=== PATIENT | female | born 1985 | race Two or more races ===

== ENCOUNTER 2018-06-12 22:07 | Outpatient (CLI) | payer BC ==
[2018-06-12 23:46] LABS: ADD UMIC NO; UR ASCORBIC ACID NEGATIVE (NEGATIVE); UR BILIRUBIN (Dip) NEGATIVE (NEGATIVE); UR BLOOD (Dip) NEGATIVE (NEGATIVE); UR CLARITY CLEAR (CLEAR); UR COLOR YELLOW (YELLOW); UR GLUCOSE (Dip) NEGATIVE (NEGATIVE); UR KETONES (Dip) NEGATIVE (NEGATIVE); UR LEUKOCYTE ESTERASE (Dip) NEGATIVE Leu/ul (NEGATIVE); UR NITRITE (Dip) NEGATIVE (NEGATIVE); UR SPECIFIC GRAVITY (Dip) 1.016 (1.003-1.030); UR TOTAL PROTEIN (Dip) NEGATIVE (NEGATIVE); UR UROBILINOGEN (Dip) 2+ mg/dL (NEGATIVE)
[2018-06-12] MEDS: TERBUTALINE 1 MG/ML INJ SC (23:46)
[2018-06-13] MEDS: LACTATED RINGER'S 1,000 ML IV (00:02)
== END 2018-06-13 00:42 | disposition home or self-care (01) ==
LOC: OBT 22:07 → L-D 22:09
DX: O47.03 False labor before 37 completed weeks of gestation, third trimester (principal); Z3A.36 36 weeks gestation of pregnancy
CPT/HCPCS: 76815; 76818; 81003; 96360; 96361; 96372

== ENCOUNTER 2018-06-13 21:30 | Inpatient (IN) | payer BC ==
[2018-06-14] MEDS: LACTATED RINGER'S 1,000 ML IV* ×4 (01:00→03:11)
[2018-06-14] MEDS ORDERED: MISOPROSTOL 200 MCG TAB PR ×2 (01:30→08:30)
[2018-06-14] MEDS ORDERED: CARBOPROST 250 MCG INJ IM ×2 (01:30→08:30)
[2018-06-14] MEDS ORDERED: OXYTOCIN 30 UNITS/LR 500 ML IV ×2 (01:30→08:30)
[2018-06-14] MEDS ORDERED: METHYLERGONOVINE 0.2 MG INJ IM ×2 (01:30→08:30)
[2018-06-14 01:40] LABS: ADD MAN DIFF? NO
[2018-06-14] MEDS: AMPICILLIN 2 GM/NS (PMX) 100 ML IV (01:44)
[2018-06-14 01:46] LABS: BASOPHILS % 0.4 % (0.0-2.0); EOSINOPHILS % 0.7 % (0.0-7.0); HEMATOCRIT 37.5 % (37.0-47.0); HEMOGLOBIN 11.9 g/dl (12.0-16.0); LYMPHOCYTES # 1.8 10^3/ul (0.8-2.9); MEAN CORPUSCULAR HEMOGLOBIN 28.7 pg (29.0-33.0); MEAN CORPUSCULAR HGB CONC 31.7 g/dl (32.0-37.0); MEAN CORPUSCULAR VOLUME 90.4 fl (82.0-101.0); MEAN PLATELET VOLUME 9.8 fl (7.4-10.4); MONOCYTE # 0.5 10^3/ul (0.3-0.9); MONOCYTES % 8.1 % (0.0-11.0); NEUTROPHIL # 3.3 10^3/ul (1.6-7.5); NEUTROPHILS % 58.4 % (39.0-77.0); PLATELET COUNT 257 10^3/UL (140-415); RED BLOOD COUNT 4.15 10^6/ul (4.20-5.40); RED CELL DISTRIBUTION WIDTH 15.6 % (11.5-14.5)
[2018-06-14 01:46] LABS: WHITE BLOOD COUNT 5.7 10^3/ul (4.8-10.8)
[2018-06-14 01:50] LABS: ADD UMIC NO; UR ASCORBIC ACID NEGATIVE (NEGATIVE); UR BILIRUBIN (Dip) NEGATIVE (NEGATIVE); UR BLOOD (Dip) NEGATIVE (NEGATIVE); UR CLARITY CLEAR (CLEAR); UR COLOR YELLOW (YELLOW); UR GLUCOSE (Dip) NEGATIVE (NEGATIVE); UR KETONES (Dip) 1+ mg/dL (NEGATIVE); UR LEUKOCYTE ESTERASE (Dip) NEGATIVE Leu/ul (NEGATIVE); UR NITRITE (Dip) NEGATIVE (NEGATIVE); UR SPECIFIC GRAVITY (Dip) 1.013 (1.003-1.030); UR TOTAL PROTEIN (Dip) NEGATIVE (NEGATIVE); UR UROBILINOGEN (Dip) NEGATIVE (NEGATIVE)
[2018-06-14 02:08] LABS: INR 0.85; PROTIME 11.7 Sec (11.9-14.9); PT RATIO 0.9
[2018-06-14 02:09] LABS: PARTIAL THROMBOPLASTIN TIME 24.1 Sec (25.0-35.0)
[2018-06-14 03:25] LABS: HEPATITIS B SURFACE ANTIGEN NEGATIVE (NEGATIVE)
[2018-06-14] MEDS: CITRIC ACID/SODIUM CITRATE 15 ML CUP PO (03:28)
[2018-06-14] MEDS: ONDANSETRON 4 MG INJ IV (03:29)
[2018-06-14 03:35] LABS: HIV 1&2 ANTIBODY NEGATIVE (NEGATIVE)
[2018-06-14 03:41] LABS: AMPHETAMINE/METHAMPHETAMINE Negative (NEGATIVE); BARBITURATES Negative (NEGATIVE); BENZODIAZEPINES Negative (NEGATIVE); CANNABINOIDS Negative (NEGATIVE); COCAINE Negative (NEGATIVE); OPIATES Negative (NEGATIVE)
[2018-06-14] MEDS ORDERED: FENTAnyl 50 MCG/ML VIAL (04:05)
[2018-06-14] MEDS ORDERED: morphine SULFATE/PF (10 MG/10 ML) INJ (04:05)
[2018-06-14] MEDS ORDERED: METOCLOPRAMIDE 10 MG INJ (04:05)
[2018-06-14] MEDS ORDERED: PHENYLephrine (100 MCG/ML) 5ML SYG (04:05)
[2018-06-14] MEDS ORDERED: OXYTOCIN 10 UNIT INJ (04:05)
[2018-06-14] MEDS ORDERED: BUPIVACAINE 0.75%/DEXT (SPINAL) 2 ML INJ (04:05)
[2018-06-14] MEDS: OXYTOCIN 30 UNITS/LR 500 ML IV ×2 (05:56→09:29)
[2018-06-14] MEDS ORDERED: ONDANSETRON 4 MG INJ IV ×2 (06:00)
[2018-06-14] MEDS ORDERED: DIPHENHYDRAMINE 50 MG INJ IV ×2 (06:00)
[2018-06-14] MEDS ORDERED: HYDROmorphONE 1 MG/5 ML IV SYRINGE IV ×3 (06:00)
[2018-06-14] MEDS ORDERED: morphine 2 MG INJ IV ×2 (06:00)
[2018-06-14] MEDS ORDERED: LABETALOL HCL 20MG INJ IV (06:00)
[2018-06-14] MEDS ORDERED: MIDAZOLAM 1 MG/ML 2 ML INJ IV (06:00)
[2018-06-14] MEDS ORDERED: FENTAnyl 50 MCG/ML VIAL IV ×3 (06:00)
[2018-06-14] MEDS ORDERED: EPHEDrine SULFATE 50 MG/5 ML SYG IV (06:00)
[2018-06-14] MEDS ORDERED: NALOXONE (0.4 MG/ML) INJ IV (06:00)
[2018-06-14] MEDS ORDERED: MEPERIDINE 25 MG INJ IV (06:00)
[2018-06-14] MEDS ORDERED: OXYCODONE/ACETAMINOPHEN (5/325) TAB PO ×2 (06:00)
[2018-06-14] MEDS ORDERED: hydrALAzine 20 MG INJ IV (06:00)
[2018-06-14] MEDS ORDERED: NALBUPHINE HCL (10 MG/1 ML) INJ IV (06:00)
[2018-06-14] MEDS ORDERED: IPRATROPIUM (NEB) 0.5 MG/2.5 ML AMP HHN (06:00)
[2018-06-14] MEDS ORDERED: TRIMETHOBENZAMIDE 100 MG/ML VIAL IM ×2 (06:00)
[2018-06-14] MEDS ORDERED: ALBUTEROL 0.083% (NEB) 2.5 MG/3 ML AMP HHN (06:00)
[2018-06-14] MEDS: CEFAZOLIN 2 GM/50 ML (PMX) 50 ML IV (06:09)
[2018-06-14] MEDS: LACTATED RINGER'S 1,000 ML IV ×2 (08:13→23:16)
[2018-06-14] MEDS ORDERED: LANOLIN 7 GM TUBE TOP (08:30)
[2018-06-14] MEDS: SENNA/DOCUSATE NA (8.6MG/50MG) TAB PO ×2 (09:00→22:03)
[2018-06-14 16:11] LABS: RAPID PLASMA REAGIN NONREACTIVE (NR)
[2018-06-15] MEDS: LACTATED RINGER'S 1,000 ML IV (00:13)
[2018-06-15] MEDS: KETOROLAC 30 MG INJ IV (04:29)
[2018-06-15] MEDS: IBUPROFEN 800 MG TAB PO ×3 (06:00→22:19)
[2018-06-15] MEDS ORDERED: OXYCODONE/ACETAMINOPHEN (5/325) TAB PO (06:00)
[2018-06-15 07:27] LABS: ADD MAN DIFF? NO
[2018-06-15 07:30] LABS: BASOPHILS % 0.4 % (0.0-2.0); EOSINOPHILS # 0.1 10^3/ul (0.0-0.5); EOSINOPHILS % 0.7 % (0.0-7.0); HEMATOCRIT 34.7 % (37.0-47.0); HEMOGLOBIN 11.1 g/dl (12.0-16.0); LYMPHOCYTES # 1.6 10^3/ul (0.8-2.9); LYMPHOCYTES % 21.6 % (15.0-51.0); MEAN CORPUSCULAR HEMOGLOBIN 28.8 pg (29.0-33.0); MEAN CORPUSCULAR VOLUME 90.1 fl (82.0-101.0); MEAN PLATELET VOLUME 9.5 fl (7.4-10.4); MONOCYTE # 0.6 10^3/ul (0.3-0.9); MONOCYTES % 8.3 % (0.0-11.0); NEUTROPHIL # 5.1 10^3/ul (1.6-7.5); NEUTROPHILS % 68.7 % (39.0-77.0); PLATELET COUNT 230 10^3/UL (140-415); RED BLOOD COUNT 3.85 10^6/ul (4.20-5.40); RED CELL DISTRIBUTION WIDTH 15.5 % (11.5-14.5)
[2018-06-15 07:30] LABS: WHITE BLOOD COUNT 7.4 10^3/ul (4.8-10.8)
[2018-06-15] MEDS: SENNA/DOCUSATE NA (8.6MG/50MG) TAB PO ×2 (09:12→22:19)
[2018-06-15] MEDS: OXYCODONE/ACETAMINOPHEN (5/325) TAB PO (10:43)
[2018-06-16] MEDS: IBUPROFEN 800 MG TAB PO ×3 (05:37→22:59)
[2018-06-16] MEDS: SENNA/DOCUSATE NA (8.6MG/50MG) TAB PO ×2 (09:33→22:59)
[2018-06-16 11:32] LABS: RUBELLA ANTIBODY - IGM <20.00 AU/mL
[2018-06-17] MEDS: GUAIFENESIN/DM 5ML CUP PO (00:10)
[2018-06-17] MEDS: IBUPROFEN 800 MG TAB PO ×3 (06:29→21:37)
[2018-06-17] MEDS: DIPHTH/TET/ACEL PERTUSS (ADULT) 0.5 ML VIAL IM* (09:00)
[2018-06-17] MEDS: SENNA/DOCUSATE NA (8.6MG/50MG) TAB PO ×2 (09:35→21:37)
[2018-06-17] MEDS: OXYCODONE/ACETAMINOPHEN (5/325) TAB PO (12:52)
[2018-06-18] MEDS: IBUPROFEN 800 MG TAB PO ×2 (05:43→15:40)
[2018-06-18] MEDS: SENNA/DOCUSATE NA (8.6MG/50MG) TAB PO (09:01)
== END 2018-06-18 17:15 | disposition home or self-care (01) | DRG 766 ==
LOC: OBT 06-14 01:20 → L-D 06-14 01:20 → PP1 06-14 18:04 → L-D 22:23
PROVIDERS: Obstetrics & Gynecology
PROC: 10D00Z1 Extraction of Products of Conception, Low, Open Approach (ICD-10-PCS; principal; 2018-06-14 04:45)
DX: O34.219 Maternal care for unspecified type scar from previous cesarean delivery (principal); Z3A.36 36 weeks gestation of pregnancy; Z37.0 Single live birth
CPT/HCPCS: 36415; 80307; 81003; 85025; 85610; 85730; 86592; 86703; 86762; 86850; 86870; 86900; 86901; 87086; 87340; 87591; 99464